=== PATIENT | female | born 1995 | race Caucasian/White ===

== ENCOUNTER 2019-12-24 17:19 | Emergency (ER) | payer OTHER ==
[2019-12-24 17:39] VITALS: BP 107/74; PULSE 70; TEMP 97.8; BMI 34.2
--- NOTE | 2019-12-24 18:23 | PDOC ---
History of Present Illness - General Chief Complaint: Bite Stated Complaint: RAT BITE Time Seen by Provider: 12/24/19 17:44 - History of Present Illness Initial Comments: 12/24/19 18:20 24-year-old female without comorbidities presents for evaluation of a rapid on the tip of her nose. Patient states she was sleeping and was bitten by a rat that is in her apartment. She seen in an urgent care she was given Motrin Augmentin and her tetanus was updated she was advised to come to the emergency room for rabies vaccination. Past History - Medical History Allergies/Adverse Reactions: Allergies Allergy/AdvReac Type Severity Reaction Status Date / Time No Known Allergies Allergy Verified 11/03/12 01:20 Home Medications: Ambulatory Orders No Home Medications 0 dose .ROUTE UTDICT 11/03/12 COPD: No - Reproductive History Is Patient Now?: No - Immunization History Immunization Up to Date: No - Psycho-Social/Smoking History Smoking Status: No Smoking History: Never smoked Have you smoked in the past 12 months: No Number of Cigarettes Smoked Daily: 0 Information on smoking cessation initiated: No - Substance Abuse Hx (Audit-C & DAST Scrn) How often the patient has a drink containing alcohol: Never Score: In Men: 4 or > Positive; In Women: 3 or > Positive: 0 Screen Result (Pos requires Nsg. Audit-10AR): Negative In the last yr the pt used illegal drug/Rx for NonMed reason: No Score: Yes response is considered Positive: 0 Screen Result (Positive result requires Nsg. DAST-10): Negative Review of Systems - Review of Systems Constitutional: No: Fever *Physical Exam - Vital Signs Last Vital Signs Temp Pulse Resp BP Pulse Ox 97.8 F 70 18 107/74 98 12/24/19 17:36 12/24/19 17:36 12/24/19 17:36 12/24/19 17:36 12/24/19 17:36 - Physical Exam 12/24/19 18:20 2 small excoriations at the tip of the nose with normal surrounding skin color and temperature otherwise normal examination General Appearance: Yes: Nourished, Appropriately Dressed. No: Apparent Distress HEENT: positive: Symmetrical Neck: positive: Supple Respiratory/Chest: negative: Respiratory Distress Musculoskeletal: positive: Normal Inspection Extremity: positive: Normal Inspection Medical Decision Making - Medical Decision Making 12/24/19 18:21 No indication for rabies vaccination today tetanus already updated she is on the appropriate antibiotics follow-up with primary care physician. I have reviewed the pathophysiology with the patient. They are in agreement with the treatment plan all questions were answered to their satisfaction. Understanding for follow-up without fail was also conveyed to the patient. Again they are in agreement. Recommendations were given from the [facility] Discharge - Discharge Information Problems reviewed: Yes Clinical Impression/Diagnosis: Rat bite Condition: Stable Disposition: HOME - Admission No - Follow up/Referral Referrals: Julieta Harris MD [Staff Physician] - - Patient Discharge Instructions Additional Instructions: Please take the antibiotics as directed and finish the entire course. Is important that you finish the antibiotics as they are prophylactic for infection. Return to the emergency room for worsening symptoms and without fail follow-up with primary care physician in 1 to 2 days for further evaluation and treatment options. - Post Discharge Activity
== END 2019-12-24 18:33 | disposition home or self-care (01) ==
LOC: JERFT 17:19
PROC: 3E033NZ Introduction of Analgesics, Hypnotics, Sedatives into Peripheral Vein, Percutaneous Approach (ICD-10-PCS; principal; 2019-12-24)
DX: W53.11XA Bitten by rat, initial encounter (principal)
CPT/HCPCS: 99284-25

== ENCOUNTER 2021-08-05 18:40 | Emergency (ER) | payer OTHER ==
[2021-08-05 18:54] VITALS: BMI 29.2
[2021-08-05] MEDS ORDERED: ACETAMINOPHEN INJECTION 100 ML IVPB ONE (20:04)
[2021-08-05] MEDS ORDERED: SODIUM CHLORIDE 2,177 ML IV ONE (20:46)
[2021-08-05 20:57] LABS: BASO % 0.4 % (0-2.0); EOS % 0.1 % (0-4.5); HEMATOCRIT 39.4 % (32.4-45.2); HEMOGLOBIN 13.3 GM/dL (10.7-15.3); LYMPH % 10.1 % (8-40); MCH 29.8 pg (25.7-33.7); MCHC 33.8 g/dl (32.0-36.0); MEAN CELL VOLUME 88.2 fl (80-96); MEAN PLT VOLUME 8.2 fl (7.5-11.1); MONO % 6.5 % (3.8-10.2); NEUT % 82.9 % (42.8-82.8); PLATELET COUNT 350 10^3/uL (134-434); RBC 4.46 M/mm3 (3.60-5.2); RDW 13.5 % (11.6-15.6); WHITE BLOOD COUNT 16.7 K/mm3 (4.0-10.0)
[2021-08-05 21:14] LABS: CALCIUM 8.9 mg/dL (8.5-10.1)
[2021-08-05 21:15] LABS: ALBUMIN 3.2 g/dl (3.4-5.0); BLOOD UREA NITROGEN 8.9 mg/dL (7-18); MAGNESIUM 2.4 mg/dL (1.8-2.4)
[2021-08-05 21:18] LABS: CREATININE 0.8 mg/dL (0.55-1.3); PHOSPHOROUS 2.2 mg/dL (2.5-4.9)
[2021-08-05 21:19] LABS: BILIRUBIN,TOTAL 0.8 mg/dL (0.2-1)
[2021-08-05 21:20] LABS: TOT PROT 8.2 g/dl (6.4-8.2)
[2021-08-05] MEDS ORDERED: ACETAMINOPHEN 1000 MG/100 ML BAG IVPB ONE (22:15)
[2021-08-05 23:16] LABS: EPI CELLS >36 /uL (0-25.1); HYALINE CASTS 7 /uL (0-3.1); PH,URINE 8.5 (5.0-8.0); URINE APPEARANCE CLOUDY; URINE BACTERIA 751 /uL (0-1359); URINE BILIRUBIN 1+ (NEGATIVE); URINE COLOR DK YELLOW; URINE GLUCOSE (UA) NEGATIVE (NEGATIVE); URINE KETONE TRACE (NEGATIVE); URINE LEUK ESTERASE NEGATIVE (NEGATIVE); URINE NITRITE NEGATIVE (NEGATIVE); URINE PROTEIN 2+ (NEGATIVE); URINE RBC 48 /uL (0-23.9); URINE WBC 43 /uL (0-25.8)
[2021-08-05] MEDS ORDERED: DOXYCYCLINE HYCLATE 100 MG CAPSULE PO ONE ×2 (23:17→23:26)
[2021-08-05 23:34] VITALS: BP 111/69; PULSE 96; TEMP 98.8
== END 2021-08-05 23:39 | disposition home or self-care (01) ==
LOC: JER 18:40
PROC: 3E033GC Introduction of Other Therapeutic Substance into Peripheral Vein, Percutaneous Approach (ICD-10-PCS; principal; 2021-08-05)
DX: J18.9 Pneumonia, unspecified organism (principal)
CPT/HCPCS: 36415; 71046-TC-FY; 80053; 81003; 83735; 84100; 84703; 85025; 86707; 86708; 86803; 87040; 87086; 87207; 87340; 87350; 87517; 87804; 93005; 93010; 99285-25